=== PATIENT | male | born 1960 | race Caucasian/White ===

== ENCOUNTER 2016-07-03 10:13 | Outpatient (CLI) ==
[2015-12-27 09:16] VITALS: BMI 35.3
[2016-07-03 18:23] LABS: ALBUMIN 3.7 g/dL (3.4-5.0); ALBUMIN/GLOBULIN RATIO 1.09; ANION GAP 17.8; BILIRUBIN,TOTAL 0.77 mg/dL (0.00-1.20); BUN/CREATININE RATIO 14.28; CHOL/HDL RATIO 4.4 (4.5-6.4); CREATININE 1.19 mg/dL (0.60-1.10); POTASSIUM 3.8 mmol/L (3.5-5.1); TOTAL PROTEIN 7.1 g/dL (6.4-8.2)
== END 2016-07-03 10:14 | disposition home or self-care (01) ==
LOC: LAB 10:13
PROVIDERS: ATTEND Nurse Practitioner Family
DX: I10 Essential (primary) hypertension (principal); E11.9 Type 2 diabetes mellitus without complications; E78.5 Hyperlipidemia, unspecified
CPT/HCPCS: 36415; 80053; 80061; 83036

== ENCOUNTER 2016-10-01 11:37 | Outpatient (CLI) ==
[2015-12-27 09:16] VITALS: BMI 35.3
[2016-10-01 13:20] LABS: BASOPHILS % (AUTO) 0.4 % (0.0-3.0); EOSINOPHILS # (AUTO) 0.1 K/ul (0.0-0.7); EOSINOPHILS % (AUTO) 1.1 % (0.0-7.0); HEMATOCRIT 40.1 % (42.0-52.0); HEMOGLOBIN 13.4 g/dl (14.0-18.0); IMMATURE GRANULOCYTE % (AUTO) 0.3 % (0.0-5.0); LYMPHOCYTES # (AUTO) 3.2 K/uL (0.60-3.4); LYMPHOCYTES % (AUTO) 32.5 (10.0-50.0); MEAN CORPUSCULAR HEMOGLOBIN 28.9 pg (27.0-31.0); MEAN CORPUSCULAR HGB CONC 33.4 (31.8-35.4); MEAN CORPUSCULAR VOLUME 86.4 fl (80.0-94.0); MONOCYTES # (AUTO) 0.8 K/uL (0.4-2.0); MONOCYTES % (AUTO) 8.1 (0-10); NEUTROPHILS # (AUTO) 5.7 K/ul (2.0-6.9); NEUTROPHILS % (AUTO) 57.6; PLATELET COUNT 236 10^3/uL (140-440); RED BLOOD COUNT 4.64 10^6/ul (4.70-6.10); WHITE BLOOD COUNT 9.91 K/ul (4.2-10.2)
[2016-10-01 14:09] LABS: ALBUMIN 3.8 g/dL (3.4-5.0); ALBUMIN/GLOBULIN RATIO 1.06; ANION GAP 14.5; BILIRUBIN,TOTAL 0.72 mg/dL (0.00-1.20); BUN/CREATININE RATIO 11.19; CALCIUM 9.2 mg/dL (8.2-10.2); CHOL/HDL RATIO 4.2 (4.5-6.4); CREATININE 1.34 mg/dL (0.60-1.10); POTASSIUM 3.5 mmol/L (3.5-5.1); TOTAL PROTEIN 7.4 g/dL (6.4-8.2)
== END 2016-10-01 11:38 | disposition home or self-care (01) ==
LOC: LAB 11:37
PROVIDERS: ATTEND Nurse Practitioner Family
DX: E11.9 Type 2 diabetes mellitus without complications (principal); I10 Essential (primary) hypertension; F32.9 Major depressive disorder, single episode, unspecified; E78.5 Hyperlipidemia, unspecified
CPT/HCPCS: 36415; 80053; 80061; 83036; 84443; 85025

== ENCOUNTER 2016-10-07 09:56 | Outpatient (CLI) ==
[2015-12-27 09:16] VITALS: BMI 35.3
--- NOTE | 2016-10-07 10:43 | DI ---
EXAM: PA and lateral views of the chest HISTORY: Chest pain COMPARISON: None FINDINGS: The cardiomediastinal silhouette is normal. There is no pneumothorax or pleural effusion . There is no consolidation, nodule or mass. The osseous structures demonstrate no acute osseous a bnormality. IMPRESSION: No acute cardiopulmonary process
== END 2016-10-07 09:57 | disposition home or self-care (01) ==
LOC: LAB 09:56
PROVIDERS: ATTEND Nurse Practitioner Family
DX: R07.89 Other chest pain (principal); E11.42 Type 2 diabetes mellitus with diabetic polyneuropathy; E78.5 Hyperlipidemia, unspecified; I10 Essential (primary) hypertension
CPT/HCPCS: 93005; 93010

== ENCOUNTER 2016-10-13 12:48 | Outpatient (CLI) ==
[2016-10-13 15:32] VITALS: BMI 34.4
== END 2016-10-13 12:49 | disposition home or self-care (01) ==
LOC: DIETCN 12:48
PROVIDERS: ATTEND Nurse Practitioner Family
DX: E11.9 Type 2 diabetes mellitus without complications (principal); E78.5 Hyperlipidemia, unspecified; I10 Essential (primary) hypertension
CPT/HCPCS: 97802

== ENCOUNTER 2017-04-13 13:26 | Outpatient (CLI) ==
[2017-04-13 13:46] LABS: BASOPHILS % (AUTO) 0.2 % (0.0-3.0); EOSINOPHILS # (AUTO) 0.1 K/ul (0.0-0.7); EOSINOPHILS % (AUTO) 1.4 % (0.0-7.0); HEMATOCRIT 41.5 % (42.0-52.0); HEMOGLOBIN 14.1 g/dl (14.0-18.0); IMMATURE GRANULOCYTE % (AUTO) 0.2 % (0.0-5.0); LYMPHOCYTES # (AUTO) 2.5 K/uL (0.60-3.4); LYMPHOCYTES % (AUTO) 31.5 (10.0-50.0); MEAN CORPUSCULAR VOLUME 85.4 fl (80.0-94.0); MONOCYTES # (AUTO) 0.7 K/uL (0.4-2.0); MONOCYTES % (AUTO) 8.2 (0-10); NEUTROPHILS # (AUTO) 4.7 K/ul (2.0-6.9); NEUTROPHILS % (AUTO) 58.5; PLATELET COUNT 225 10^3/uL (140-440); RED BLOOD COUNT 4.86 10^6/ul (4.70-6.10); WHITE BLOOD COUNT 8.02 K/ul (4.2-10.2)
[2017-04-13 16:29] LABS: ALBUMIN 3.3 g/dL (3.4-5.0); ALBUMIN/GLOBULIN RATIO 0.79; ANION GAP 14.8; BILIRUBIN,TOTAL 0.62 mg/dL (0.00-1.20); BUN/CREATININE RATIO 15.2; CALCIUM 9.6 mg/dL (8.2-10.2); CHOL/HDL RATIO 4.2 (4.5-6.4); CREATININE 1.25 mg/dL (0.60-1.10); POTASSIUM 3.8 mmol/L (3.5-5.1); TOTAL PROTEIN 7.5 g/dL (6.4-8.2)
== END 2017-04-13 13:27 | disposition home or self-care (01) ==
LOC: LAB 13:26
PROVIDERS: ATTEND Nurse Practitioner Family
DX: E78.5 Hyperlipidemia, unspecified (principal); E11.42 Type 2 diabetes mellitus with diabetic polyneuropathy; I10 Essential (primary) hypertension
CPT/HCPCS: 36415; 80053; 80061; 83036; 85025

== ENCOUNTER 2017-07-12 08:53 | Outpatient (CLI) | END 2017-07-12 08:54 | disposition home or self-care (01) | LOC: RHC-LAB 08:53 | PROVIDERS: ATTEND Nurse Practitioner Family | DX: E11.9 Type 2 diabetes mellitus without complications (principal); I10 Essential (primary) hypertension; E78.5 Hyperlipidemia, unspecified; Z12.5 Encounter for screening for malignant neoplasm of prostate | CPT/HCPCS: 36415; 80053; 80061; 83036 ==

== ENCOUNTER 2017-09-22 10:12 | Outpatient (CLI) | END 2017-09-22 10:13 | disposition home or self-care (01) | LOC: FCC-LAB 10:12 | PROVIDERS: ATTEND Family Medicine | DX: E11.9 Type 2 diabetes mellitus without complications (principal); E78.5 Hyperlipidemia, unspecified; I10 Essential (primary) hypertension | CPT/HCPCS: 36415; 80053; 83037 ==

== ENCOUNTER 2017-10-08 12:02 | Outpatient (CLI) | payer OTHER | END 2017-10-08 12:03 | disposition home or self-care (01) | LOC: RHC-LAB 12:02 | PROVIDERS: ATTEND Nurse Practitioner Family | DX: E11.42 Type 2 diabetes mellitus with diabetic polyneuropathy (principal); I25.10 Atherosclerotic heart disease of native coronary artery without angina pectoris; I25.2 Old myocardial infarction; E78.5 Hyperlipidemia, unspecified; I10 Essential (primary) hypertension; N17.9 Acute kidney failure, unspecified | CPT/HCPCS: 36415; 80048 ==

== ENCOUNTER 2017-10-26 10:44 | Outpatient (CLI) | payer OTHER | END 2017-10-26 10:45 | disposition home or self-care (01) | LOC: FCC-LAB 10:44 | PROVIDERS: ATTEND Family Medicine | DX: E11.9 Type 2 diabetes mellitus without complications (principal); N17.9 Acute kidney failure, unspecified; R42 Dizziness and giddiness | CPT/HCPCS: 36415; 80053; 82043; 85025 ==

== ENCOUNTER 2017-11-29 09:51 | Outpatient (CLI) | END 2017-11-29 09:52 | disposition home or self-care (01) | LOC: FCC-LAB 09:51 | PROVIDERS: ATTEND Family Medicine | DX: N17.9 Acute kidney failure, unspecified (principal); N18.3 Chronic kidney disease, stage 3 (moderate) | CPT/HCPCS: 36415; 80053 ==

== ENCOUNTER 2018-06-02 09:30 | Emergency (ER) ==
[2018-06-02 09:36] VITALS: BP 117/78; TEMP 96; BMI 34.1
--- NOTE | 2018-06-02 10:07 | ED.PDOC ---
General ED Provider: Dr. WILLIE FREEDMAN Chief Complaint: Hand Pain/Injury Stated Complaint: Rt Hand Injury. Was unloading large piece of exercise equipment from his truck when his Rt Hand was crushed between the machine and a solid wall. Experiencing severe pain over dorsum Rt Hand 1st -3rd Metarcarpal region. Sustained small puncuture wound mid aspect of injury site. Bleeding profusely initially but controlled now. States has been greater than 5 yrs for tetanus immunization . Time Seen by Physician: 09:55 Mode of Arrival: Walk-In Information Source: Patient Exam Limitations: No limitations Primary Care Provider: VELIA DONNELLY Nursing and Triage Documentation Reviewed and Agree: Yes Does patient meet sepsis criteria?: No System Inflammatory Response Syndrome: Not Applicable Sepsis Protocol: For patient's 13 years and over: Temp is 96.8 and below OR 101 and greater Pulse >90 BPM Resp >20/minute Acutely Altered Mental Status Are patient's symptoms suggestive of a new infection, such as: -Pneumonia -Skin, Soft Tissue -Endocarditis -UTI -Bone, Joint Infection -Implantable Device -Acute Abdominal Infection -Wound Infection -Meningitis -Blood Stream Catheter Infection -Unknown Musculoskeletal Complaint Exam - Hand/Wrist Complaint/Exam Location of Pain: Reports: Right, Digit #2, Digit #3 Mechanism of Injury: Reports: Trauma Onset/Duration: 1 hr Symptoms Are: Still present Onset of Pain: Reports: Immediate Initial Severity: Moderate Current Severity: Moderate Location: Reports: Discrete Character: Reports: Sharp, Aching, Throbbing Aggravating: Reports: Movement Associated Signs and Symptoms: Reports: Swelling, Bruising Related History: Denies: Similar episode Dominant Hand: Right Related Surgical History: Reports: None Hand/Wrist Findings: Present: Swelling, Ecchymosis Tenderness: Present: Metacarpal Compartment Syndrome Risk Factors: Present: Pain Differential Diagnoses: Contusion, Other ( abrasion /puncture wound) Review of Systems - Review Of Systems Constitutional: Reports: No symptoms Eyes: Reports: No symptoms Ears, Nose, Mouth, Throat: Reports: No symptoms Respiratory: Reports: No symptoms Cardiac: Reports: No symptoms GI: Reports: No symptoms : Reports: No symptoms Musculoskeletal: Reports: No symptoms Skin: Reports: No symptoms Neurological: Reports: No symptoms Endocrine: Reports: No symptoms Hematologic/Lymphatic: Reports: No symptoms All Other Systems: Reviewed and Negative Past Medical History - Past Medical History Previously Healthy: Yes Endocrine: Reports: None, Dyslipidemia Cardiovascular: Reports: CAD, [place], Hypertension Respiratory: Reports: None Hematological: Reports: None Gastrointestinal: Reports: None Genitourinary: Reports: None Neuro/Psych: Reports: None Musculoskeletal: Reports: None Cancer: Reports: None - Surgical History General Surgical History: Reports: None - Family History Family History: Reports: Unknown - Social History Smoking Status: Never smoker Hx Substance Use: No Alcohol Screening: Occasionally - Immunizations Tetanus Shot up to Date: No Physical Exam - Physical Exam Appearance: Well-appearing, No pain distress, Well-nourished Eyes: NIKKI, EOMI, Conjunctiva clear ENT: Ears normal, Nose normal, Oropharynx normal Respiratory: Airway patent, Breath sounds clear, Breath sounds equal, Respirations nonlabored Cardiovascular: RRR, Pulses normal, No rub, No murmur GI/: Soft, Nontender, No masses, Bowel sounds normal, No Organomegaly Musculoskeletal: Normal strength, No calf tenderness, Limited ROM, Limited strength, Edema Skin: Warm, Dry, Normal color Neurological: Sensation intact, Motor intact, Reflexes intact, Cranial nerves intact, Alert, Oriented Psychiatric: Affect appropriate, Mood appropriate Critical Care Note - Critical Care Note Total Time (mins): 0 Course - Course Orders, Labs, Meds: Orders Category Date Time Status Diphth,Pertuss(Acell),Tet Vac [Boostrix] MEDS 06/02/18 10:51 Discontinued 0.5 ml IM .ONCE ONE HAND, RIGHT 3 VIEWS Stat RADS 06/02/18 10:07 Completed Medications Discontinued Medications Generic Name Dose Route Start Last Admin Trade Name Freq PRN Reason Stop Dose Admin Diphtheria/Pertussis/Tetanus Vacc 0.5 ml 06/02/18 10:51 Boostrix IM 06/02/18 10:52 .ONCE ONE Vital Signs: Temp Pulse Resp BP Pulse Ox 06/02/18 09:31 96 F L 70 16 117/78 98 Departure - Departure Time of Disposition: 10:44 Disposition: DISCH/TSF TO A [facility] Discharge Problem: Contusion of hand, right, Crushing injury, Puncture wound Instructions: Puncture Wound (ED), Contusion in Adults (ED), Crush Injury (ED) Condition: Good Pt referred to PMD for follow-up: Yes (Dr Donnelly on Wednesday-pre existing appointment) IPMP verified?: No Additional Instructions: Take Ibuprofen 200 mg 3 tablets four times daily for alleviation of pain. Had splint Ice and elevate Follow wound care instructions Follow up PCP as directed Allergies/Adverse Reactions: Allergies clindamycin Adverse Reaction (Verified 06/02/18 09:38) Home Medications: Ambulatory Orders Aspirin [Aspirin Ec] 81 mg PO DAILY 11/20/14 Hydrochlorothiazide 12.5 mg PO DAILY 11/20/14 Lisinopril 20 mg PO BID 11/20/14 Metoprolol Tartrate 50 mg PO BID 11/20/14 Nitroglycerin [Nitrostat] 0.4 mg SL PRN PRN 11/20/14 Transfer Form Completed: Yes Disposition Discussed With: Patient
--- NOTE | 2018-06-02 10:39 | DI ---
EXAM: Three views of the right hand. History: Right hand trauma. Findings: No acute fracture or dislocation. Moderate narrowing of the first carpal metacarpal joint with marginal sclerosis and osteophyte formation. Mild to moderate polyarticular joint space narrow ing seen elsewhere. No abnormal calcifications or radiopaque foreign bodies. Impression: 1. No acute osseous abnormality. 2. Osteoarthritis
[2018-06-02] MEDS ORDERED: BOOSTRIX IM ONE (10:51)
== END 2018-06-02 11:00 ==
LOC: ED 09:30
DX: S61.431A Puncture wound without foreign body of right hand, initial encounter (principal); S60.221A Contusion of right hand, initial encounter; W23.0XXA Caught, crushed, jammed, or pinched between moving objects, initial encounter
CPT/HCPCS: 90471; 90715; 99283

== ENCOUNTER 2018-06-07 09:25 | Outpatient (CLI) ==
--- NOTE | 2018-06-07 10:13 | DI ---
EXAM: RIGHT HAND, 3 VIEWS HISTORY: Crushing injury, focus second metacarpal phalangeal joint FINDINGS / IMPRESSION: Bones are mildly demineralized. There is diffuse osteoarthritis, greater at the DIP joints were some joints demonstrate moderate involvement. There is no definite or well-defi gela acute fracture line. Joints are intact.
== END 2018-06-07 09:26 | disposition home or self-care (01) ==
LOC: RAD 09:25
PROVIDERS: ATTEND Family Medicine
DX: E78.5 Hyperlipidemia, unspecified (principal); E11.9 Type 2 diabetes mellitus without complications; S67.21XA Crushing injury of right hand, initial encounter; I10 Essential (primary) hypertension
CPT/HCPCS: 36415; 80053; 80061; 83036; 85025

== ENCOUNTER 2018-07-05 10:39 | Outpatient (CLI) | END 2018-07-05 10:40 | disposition home or self-care (01) | LOC: RHC-LAB 10:39 → FCC-LAB 10:40 | PROVIDERS: ATTEND Family Medicine | DX: R53.82 Chronic fatigue, unspecified (principal) | CPT/HCPCS: 36415; 84403 ==

== ENCOUNTER 2018-07-13 08:26 | Outpatient (CLI) | END 2018-07-13 08:27 | disposition home or self-care (01) | LOC: RHC-LAB 08:26 → FCC-LAB 08:27 | PROVIDERS: ATTEND Family Medicine | DX: E29.1 Testicular hypofunction (principal) | CPT/HCPCS: 36415; 84403 ==

== ENCOUNTER 2018-09-20 07:59 | Outpatient (CLI) | payer OTHER | END 2018-09-20 08:00 | disposition home or self-care (01) | LOC: RHC-LAB 07:59 → FCC-LAB 08:00 | PROVIDERS: ATTEND Family Medicine | DX: E11.65 Type 2 diabetes mellitus with hyperglycemia (principal); E78.5 Hyperlipidemia, unspecified; I10 Essential (primary) hypertension; E78.1 Pure hyperglyceridemia; Z12.5 Encounter for screening for malignant neoplasm of prostate | CPT/HCPCS: 36415; 80053; 80061; 83036; 85025 ==

== ENCOUNTER 2018-11-02 17:02 | Emergency (ER) | payer OTHER ==
[2018-11-02 17:06] VITALS: BP 176/93; TEMP 100.3; BMI 33.7
--- NOTE | 2018-11-02 17:19 | ED.PDOC ---
General Chief Complaint: Tooth Problem Stated Complaint: dental pain Time Seen by Physician: 17:00 Mode of Arrival: Walk-In Information Source: Patient Exam Limitations: No limitations Primary Care Provider: VELIA DONNELLY Nursing and Triage Documentation Reviewed and Agree: Yes Does patient meet sepsis criteria?: No System Inflammatory Response Syndrome: Not Applicable Sepsis Protocol: For patient's 13 years and over: Temp is 96.8 and below OR 101 and greater Pulse >90 BPM Resp >20/minute Acutely Altered Mental Status Are patient's symptoms suggestive of a new infection, such as: -Pneumonia -Skin, Soft Tissue -Endocarditis -UTI -Bone, Joint Infection -Implantable Device -Acute Abdominal Infection -Wound Infection -Meningitis -Blood Stream Catheter Infection -Unknown EENT Complaint Exam - Dental/Oral Complaint/Exam Mechanism of Injury: No known trauma Symptoms Are: Still present Timing: Intermittent Initial Severity: Mild Current Severity: Mild Character: Reports: Dull, Aching, Throbbing Aggravating: Reports: Heat, Cold Alleviating: Reports: None Associated Signs and Symptoms: Denies: Swelling, Discharge, Fever, Foul odor, Foul taste in mouth Cardiac Risk Factors: Reports: Hypertension Dental/Oral Surgical History: Reports: None Tooth Findings: Present: Gross caries Cervical Lymphadenopathy Present: No Facial Swelling Present: No Bleeding Present: No Oropharynx Findings: Absent: Clots, Active bleeding Septal Hematoma: No Foreign Body Present: No Dysphagia Present: No Drooling Present: No Asymmetrical Tonsillar Swelling Present: No Uvula Midline: Yes Geno-tonsillar Fluctuence: No Scarlatinaform Rash Present: No Lesions: Absent: Lip, Gums, Tongue, Buccal Mucosa, Pharynx Exanthem: Absent: Lip, Gums, Tongue, Buccal Mucosa, Pharynx Vesicles: Absent: Lip, Gums, Tongue, Buccal Mucosa, Pharynx Teeth Picture: 1 - decay Differential Diagnoses: Dental Caries, Fractured Tooth Review of Systems - Review Of Systems Constitutional: Reports: No symptoms Eyes: Reports: No symptoms Ears, Nose, Mouth, Throat: Reports: No symptoms Respiratory: Reports: No symptoms Cardiac: Reports: No symptoms GI: Reports: No symptoms : Reports: No symptoms Musculoskeletal: Reports: No symptoms Skin: Reports: No symptoms Neurological: Reports: No symptoms Endocrine: Reports: No symptoms Hematologic/Lymphatic: Reports: No symptoms All Other Systems: Reviewed and Negative Past Medical History - Past Medical History Previously Healthy: Yes Endocrine: Reports: None, Dyslipidemia Cardiovascular: Reports: CAD, [place], Hypertension Respiratory: Reports: None Hematological: Reports: None Gastrointestinal: Reports: None Genitourinary: Reports: None Neuro/Psych: Reports: None Musculoskeletal: Reports: None Cancer: Reports: None - Surgical History General Surgical History: Reports: None - Family History Family History: Reports: Unknown - Social History Smoking Status: Never smoker Hx Substance Use: No Alcohol Screening: Occasionally Physical Exam - Physical Exam Appearance: Well-appearing, No pain distress, Well-nourished Eyes: NIKKI, EOMI, Conjunctiva clear ENT: Ears normal, Nose normal, Oropharynx normal Respiratory: Airway patent, Breath sounds clear, Breath sounds equal, Respirations nonlabored Cardiovascular: RRR, Pulses normal, No rub, No murmur GI/: Soft, Nontender, No masses, Bowel sounds normal, No Organomegaly Musculoskeletal: Normal strength, ROM intact, No edema, No calf tenderness Skin: Warm, Dry, Normal color Neurological: Sensation intact, Motor intact, Reflexes intact, Cranial nerves intact, Alert, Oriented Psychiatric: Affect appropriate, Mood appropriate Critical Care Note - Critical Care Note Total Time (mins): 0 Course - Course Vital Signs: Temp Pulse Resp BP Pulse Ox 11/02/18 17:03 100.3 F H 64 20 176/93 H 96 Departure - Departure Time of Disposition: 17:19 Disposition: HOME SELF-CARE Discharge Problem: Toothache Instructions: Toothache (ED) Condition: Good Pt referred to PMD for follow-up: Yes IPMP verified?: No Additional Instructions: Please call your Family Physician as soon as possible to schedule a follow-up appointment. Prescriptions: Hydrocodone Bit/Acetaminophen [[place] 10-325] 1 each PO Q6HR #10 tablet Amoxicillin 500 mg PO Q8HR #21 tablet Allergies/Adverse Reactions: Allergies clindamycin Adverse Reaction (Verified 11/02/18 17:05) Home Medications: Ambulatory Orders Aspirin [Aspirin Ec] 81 mg PO DAILY 11/20/14 Hydrochlorothiazide 12.5 mg PO DAILY 11/20/14 Lisinopril 20 mg PO BID 11/20/14 Nitroglycerin [Nitrostat] 0.4 mg SL PRN PRN 11/20/14 Amoxicillin 500 mg PO Q8HR #21 tablet 11/02/18 Hydrocodone Bit/Acetaminophen [[place] 10-325] 1 each PO Q6HR #10 tablet 11/02/18 Disposition Discussed With: Patient
== END 2018-11-02 17:27 | disposition home or self-care (01) ==
LOC: ED 17:02
DX: K08.89 Other specified disorders of teeth and supporting structures (principal); K02.7 Dental root caries; I10 Essential (primary) hypertension
CPT/HCPCS: 99282

== ENCOUNTER 2018-12-23 08:03 | Outpatient (CLI) | payer OTHER | END 2018-12-23 08:04 | disposition home or self-care (01) | LOC: RHC-LAB 08:03 → FCC-LAB 08:04 | PROVIDERS: ATTEND Family Medicine | DX: E11.65 Type 2 diabetes mellitus with hyperglycemia (principal); E78.5 Hyperlipidemia, unspecified | CPT/HCPCS: 36415; 80053; 80061; 83037; 85025 ==

== ENCOUNTER 2019-01-02 08:46 | Outpatient (CLI) | END 2019-01-02 08:47 | disposition home or self-care (01) | LOC: LAB 08:46 | PROVIDERS: ATTEND Family Medicine | DX: R10.13 Epigastric pain (principal) | CPT/HCPCS: 87338 ==

== ENCOUNTER 2019-01-04 07:26 | Outpatient (CLI) ==
--- NOTE | 2019-01-04 08:59 | DI ---
EXAM: Esophogram HISTORY: Epigastric pain COMPARISON: None FINDINGS: Esophogram was performed using barium. Esophageal motility is normal. Esophageal caliber i s normal. No filling defect is seen in the esophagus. Small hiatal hernia. There was contrast seen i n the mid to distal esophagus during patient maneuvering, that may be due to reflux and/or dysmotilit y. IMPRESSION: 1. Small hiatal hernia. 2. Contrast in the mid to distal esophagus during patient maneuvering, may be due to reflux and/or dy smotility.
== END 2019-01-04 07:27 | disposition home or self-care (01) ==
LOC: RAD 07:26
PROVIDERS: ATTEND Family Medicine
DX: R10.13 Epigastric pain (principal)

== ENCOUNTER 2023-07-22 10:42 | Observation (INO) ==
--- NOTE | 2023-07-22 10:58 | ED.PDOC ---
General ED Provider: Dr. YASMIN BULLOCK DO Chief Complaint: Stroke Stated Complaint: Patient is a 63 yo M here for weakness and L sided weakness for 3 days He is worried because this is similar to the stuttering strokes he had last year He reports he was driving on wednesday went home and went to bed and has been weak since No falls or injuries Family at bedside reprots his voice is different He is can ambulkate well after previous stroke but feels LUE and LLE is weaker than it should be accucheck 220 BP 114/72 Last normal 60 hours ago NIH 2 for LUE weakness and subjective change in voice PMHX: IDDM, CVA, CAD, HTN, HLD Time Seen by Provider: 07/22/23 10:45 Information Source: Patient Primary Care Provider: VELIA DONNELLY MD Nursing and Triage Documentation Reviewed and Agree: Yes What is Opioid Naive?: *Opioid Naive implies the patient is not already taking opioids or not chronically receiving opioids on a daily basis. *PRN dosing is not "usually" associated with tolerance. *Patients are at higher risk of over-sedation and aspiration. What is Opioid Tolerant?: *Opioid Tolerance implies less than the expected response to an opioid. *Acquired tolerance is defined by the patient taking 60mg of oral morphine daily (or equianalgesic dose of another opioid) for 1 week or more. *Often associated with chronic pain. *May take more than usual dose to achieve desired pain control. Review of Systems Review Of Systems Constitutional: Reports Weakness; Denies Chills, Fever or Malaise Eyes: Denies Blindness or Vision change Ears, Nose, Mouth, Throat: Denies Ear pain, Ear discharge or Nose pain Respiratory: Denies Cough, Shortness of Breath or Wheezing Cardiac: Denies Chest pain, Palpitations or Syncope GI: Denies Abdominal pain or Diarrhea : Denies Dysuria or Frequency Musculoskeletal: Denies Back pain or Muscle stiffness Skin: Denies Bruising or Change in hair/nails Neurological: Reports Weakness (Lue and LLE); Denies Anxiety, Depressed, Headache or Numbness Endocrine: Denies Excessive sweating or Flushing Hematologic/Lymphatic: Denies Anemia or Blood clots All Other Systems: Reviewed and Negative [facility] Medical History Pacemaker Z95.0 - Presence of cardiac pacemaker (ICD-10) Mixed hyperlipidemia E78.2 - Mixed hyperlipidemia (ICD-10) Implantable loop recorder present Z95.818 - Presence of other cardiac implants and grafts (ICD-10) Recurrent strokes I63.9 - Cerebral infarction, unspecified (ICD-10) Low vitamin B12 level E53.8 - Deficiency of other specified B group vitamins (ICD-10) Ruptured lumbar disc M51.26 - Other intervertebral disc displacement, lumbar region (ICD-10) Myocardial infarction I21.9 - Acute myocardial infarction, unspecified (ICD-10) Elevated fasting blood sugar R73.01 - Impaired fasting glucose (ICD-10) Depression F32.9 - Major depressive disorder, single episode, unspecified (ICD-10) Atherosclerosis of coronary artery I25.10 - Atherosclerotic heart disease of [place] coronary artery without angina pectoris (ICD-10) Dyspnea on effort R06.00 - Dyspnea, unspecified (ICD-10) Stented coronary artery Z95.5 - Presence of coronary angioplasty implant and graft (ICD-10) Stye H00.019 - Hordeolum externum unspecified eye, unspecified eyelid (ICD-10) Family History Mother Diabetes History of knee replacement Cardiac disease Hypertension FATHER Diabetes Cardiac disease Lung cancer Hypertension SISTER Breast cancer, left Breast cancer, right BROTHER Cardiac disease Hypertension BROTHER Arthritis BROTHER Arthritis Social History Smoking and tobacco status: Former smoker Passive smoking exposure: No How long ago did patient quit smoking: approx age 27 Second hand smoke exposure: No Alcohol intake: current Alcohol intake frequency: holidays/special occasions only Alcohol type: beer Counseling given: No Counseling provided: none Substance use type: does not use [place]/rastafarian: NONE Special [place] needs: No Agree to transfusion: Yes Adopted: No Caregiver/support person: No Foster care: No Household members: none Housing: house Marital status: D Lives independently: Yes Daycare: no daycare Number of children: 5 Number of grandchildren: 19 Highest education level completed: some college, no degree Financial difficulty paying for basics: not very hard service: Yes 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 MCFP: No Current occupational status: disabled 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: , 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 Pets and animals: No Leisure activites: fishing and other History of recent travel: No Sexually active: No Do you think of yourself as: straight/heterosexual Current gender identity: male Seatbelt use: always Helmet use: No Drives intoxicated or rides with intoxicated river driver: No Current diet type/program: regular Well-balanced diet: daily Caffeine: Yes Eating out: 4 or more times/week Reads food labels: seldom or never During the past year weight has: increased > 10 lbs Water heater temperature set < 120 degrees: Yes Working smoke detector in home: Yes Fire extinguisher in home: Yes Carbon monoxide detector in home: No Firearms in home: Yes Firearms unloaded and locked: Yes What type of physical activity do you participate in?: bicycling Physical activity functional status: independent ambulation How many days of moderate to strenuous exercise, like a brisk walk, did you do in the last 7 days: 0 Surgical History History of loop recorder Z98.890 - Other specified postprocedural states (ICD-10) (09/13/18) Negative stress echo on 09/13/18 History of musculoskeletal system surgery (07/10/13) Back Surgery, Dr. Desir Work-Related injury Z98.890 - Other specified postprocedural states (ICD-10) Placement of stent in coronary artery (~2013) Dr. Dean Status post appendectomy age 12 Z90.49 - Acquired absence of other specified parts of digestive tract (ICD- 10) Physical Exam Physical Exam Appearance: Reports Well-appearing and Well-nourished Ill-appearing: Not Applicable Pain Distress: Not Applicable Eyes: Reports NIKKI, EOMI and Conjunctiva clear ENT: Reports Ears normal, Nose normal and Oropharynx normal Neck: Supple Respiratory: Reports Airway patent and Breath sounds clear; Denies Crackles, Rhonchi or Wheezes Cardiovascular: Reports RRR and Pulses normal GI/: Reports Soft and Nontender Musculoskeletal: Reports Normal strength and ROM intact Skin: Reports Warm and Dry Neurological: Reports Sensation intact, Alert, Oriented and Other (LUE weakenss and LLE weakness); Denies Disoriented or CN Palsy Psychiatric: Reports Affect appropriate and Mood appropriate NIH Stroke Scale 1a. Level of Consciousness: 0=Alert and keenly responsive 1b. Level of Consciousness Questions: 0=Answers correctly to two questions 2. Best Gaze: 0=Normal 3. Visual: 0=No visual loss 4. Facial Palsy: 0=Normal 5a. Motor Left Arm: 1=Drifts before 10 seconds arm, 5 seconds leg 5b. Motor Right Arm: 0=No drift,arm holds 90 degrees for 10 sec., leg 30 degrees for 5 sec. 6a. Motor Left Le=No drift,arm holds 90 degrees for 10 sec., leg 30 degrees for 5 sec. 6b. Motor Right Le=No drift,arm holds 90 degrees for 10 sec., leg 30 degrees for 5 sec. 7. Limb Ataxia: 0=Absent 8. Sensory: 0=Normal 9. Best Language: 0=No aphasia 10. Dysarthria: 1=Mild to moderate, but can be understood 11. Extincion and Inattention: 0=Normal Stroke Scale Total: 2 Interpretation EKG Interpretation EKG Interpretation By: ED Physician Time of EKG #1: 10:55 Interpretation: NSR rate 72 no stemi qt wnl Course Course 07/22/23 10:58 07/22/23 10:58 Orders, Labs, Meds: Lab Review 07/22/23 07/22/23 07/22/23 10:53 10:58 12:49 WBC 7.12 RBC 5.04 Hgb 13.9 L Hct 42.9 MCV 85.1 MCH 27.6 MCHC 32.4 RDW Coeff of Isaura 13.7 Plt Count 209 Immature Gran % (Auto) 0.3 Neut % (Auto) 67.1 Lymph % (Auto) 19.5 [place] % (Auto) 11.7 H Eos % (Auto) 1.1 Baso % (Auto) 0.3 Neut # (Auto) 4.8 Lymph # (Auto) 1.4 [place] # (Auto) 0.8 Eos # (Auto) 0.1 Baso # (Auto) 0.0 Immature Gran # (Auto) 0.0 PT 10.6 INR 1.02 APTT 32.8 Sodium 135.2 Potassium 3.45 L Chloride 103.6 Carbon Dioxide 25.3 Anion Gap 9.75 BUN 14.9 Creatinine 1.37 H Estimated GFR (MDRD) 53.00 BUN/Creatinine Ratio 10.87 Glucose 243.9 H Calcium 9.15 Total Bilirubin 0.92 AST 22.5 ALT 28.3 Alkaline Phosphatase 65.9 Troponin I < 0.012 Total Protein 7.75 Albumin 4.24 Globulin 3.51 Albumin/Globulin Ratio 1.20 Urine Color Yellow Urine Clarity Clear Urine pH 5.5 Ur Specific [place] 1.010 Urine Protein Negative Urine Glucose (UA) 2+ H Urine Ketones Negative Urine Blood Negative Urine Nitrite Negative Urine Bilirubin Negative Urine Urobilinogen 0.2 Ur Leukocyte Esterase Negative Acetone, Qual Trace Influ A Molecular Assay Negative by naat Influ B Molecular Assay Negative by naat RSV Antigen Negative by naat SARS CoV-2 RNA Rapid FRANCINE Positive H Orders Category Date Time Status EKG-(ED ONLY) Stat CARDIO 07/22/23 10:49 Completed NPO REMINDER: IMAGING ONCE CARE 07/22/23 10:49 Completed ED ACCUCHECK ASSESSMENT .ONCE EMERGENCY 07/22/23 10:49 Active ED APPLY O2 .ONCE EMERGENCY 07/22/23 10:49 Active ED IV/MEDIPORT/POWERPORT .ONCE EMERGENCY 07/22/23 10:49 Active ACETONE, QUALITATIVE Stat LAB 07/22/23 10:58 Completed CBC W/ AUTO DIFF Stat LAB 07/22/23 10:58 Completed COMPREHENSIVE METABOLIC PANEL Stat LAB 07/22/23 10:58 Completed FLU A & B MOLECULAR [FLU A/B MOLECULAR] Stat LAB 07/22/23 10:53 Completed PARTIAL THROMBOPLASTIN TIME Stat LAB 07/22/23 10:58 Completed PT WITH INR Stat LAB 07/22/23 10:58 Completed RSV Stat LAB 07/22/23 10:53 Completed SARS COV-2 RNA RAPID FRANCINE Stat LAB 07/22/23 10:53 Completed TROPONIN I Stat LAB 07/22/23 10:58 Completed UA [URINALYSIS C & S IF INDICATED] Stat LAB 07/22/23 12:49 Completed 0.9 % Sodium Chloride [Saline Flush] Meds 07/22/23 10:49 Active 1 syr IVF PRN PRN Aspirin [Aspirin Chewable] Meds 07/22/23 11:41 Discontinued 324 mg PO ONCE STA Sodium Chloride 0.9% [Sodium Chloride] 1,000 ml Meds 07/22/23 10:58 Active IV 125 mls/hr CT HEAD W/O CONTRAST Stat RADS 07/22/23 10:49 Completed CTA ANGIO HEAD Stat RADS 07/22/23 10:49 Completed CTA ANGIO NECK Stat RADS 07/22/23 10:49 Completed Medications Generic Name Dose Route Start Last Admin Trade Name Freq PRN Reason Stop Dose Admin Sodium Chloride 1,000 mls @ 125 mls/hr 07/22/23 10:58 07/22/23 11:06 Sodium Chloride IV 07/22/23 18:57 125 mls/hr .Q8H ONE Administration Sodium Chloride 1 syr 07/22/23 10:49 0.9% Sodium Chloride 10 Ml Disp.Syrin IVF PRN PRN To flush IV Discontinued Medications Generic Name Dose Route Start Last Admin Trade Name Freq PRN Reason Stop Dose Admin Aspirin 324 mg 07/22/23 11:41 07/22/23 11:47 Aspirin 81 Mg Tab.Chew PO 07/22/23 11:42 324 mg ONCE STA Administration Vital Signs: Temp Pulse Resp BP Pulse Ox 07/22/23 10:46 98.5 F 77 18 114/72 97 MDM: patient is a 63 yo M here for LUE LLE weakness since Last Wednesday Patient afebrile and vitally stable Hx from patient chart review by me 3+ labs and 3+ images reviewed by me aspirin given Patient covid positive WDX: Strokelike symptoms, covid 19 acute high complexity DDX: I considered ICH, sepsis, fracture but these are less likely SDOH: patient will improve with further care I consulted Hospitalist and they agree with obs and further work up Patient placed on observation family agree with plan Physician Progress Note: [] Discharge Plan Discharge Patient Disposition: PLACED OBSERVATION Discharge Problem: SARS-CoV-2 positive, Stroke-like episode, Acute hyperglycemia, Elevated serum creatinine Did you review [place] VAN DRIVER for ALL controlled substances?: Not Applicable ED Provider: YASMIN BULLOCK Condition: Stable [place] Coma Scale [place] Coma Scale Response Scores: Best Response = 15 Comatose Client = 8 or Less Totally Unresponsive = 3
[2023-07-22 11:04] LABS: BASOPHILS % (AUTO) 0.3 % (0.0-3.0); EOSINOPHILS # (AUTO) 0.1 K/ul (0.0-0.7); EOSINOPHILS % (AUTO) 1.1 % (0.0-7.0); HEMATOCRIT 42.9 % (42.0-52.0); HEMOGLOBIN 13.9 g/dl (14.0-18.0); IMMATURE GRANULOCYTE % (AUTO) 0.3 % (0.0-5.0); LYMPHOCYTES # (AUTO) 1.4 K/uL (0.60-3.4); LYMPHOCYTES % (AUTO) 19.5 (10.0-50.0); MEAN CORPUSCULAR HEMOGLOBIN 27.6 pg (27.0-31.0); MEAN CORPUSCULAR HGB CONC 32.4 (31.8-35.4); MEAN CORPUSCULAR VOLUME 85.1 fl (80.0-94.0); MONOCYTES # (AUTO) 0.8 K/uL (0.4-2.0); MONOCYTES % (AUTO) 11.7 (0-10); NEUTROPHILS # (AUTO) 4.8 K/ul (2.0-6.9); NEUTROPHILS % (AUTO) 67.1 % (42.2-75.2); PLATELET COUNT 209 10^3/uL (140-440); RDW COEFFICIENT OF VARIATION 13.7 % (11.6-14.8); RED BLOOD COUNT 5.04 10^6/ul (4.70-6.10); WHITE BLOOD COUNT 7.12 K/ul (4.2-10.2)
[2023-07-22] MEDS: SODIUM CHLORIDE 1,000 ML IV ONE (11:06)
[2023-07-22 11:17] LABS: SARS COV-2 RNA RAPID NAAT POSITIVE (NEGATIVE)
[2023-07-22 11:19] LABS: PARTIAL THROMBOPLASTIN TIME 32.8 SEC (23.9-40.0); PROTHROMBIN TIME 10.6 SEC (9.3-11.0)
[2023-07-22 11:22] LABS: ALANINE AMINOTRANSFERASE 28.3 U/L (0-50); ALBUMIN 4.24 g/dL (3.5-5.0); ALKALINE PHOSPHATASE 65.9 U/L (56-119); ASPARTATE AMINO TRANSFERASE 22.5 U/L (17-59); BILIRUBIN,TOTAL 0.92 mg/dL (0.2-1.3); BLOOD UREA NITROGEN 14.9 mg/dL (9-20); CALCIUM 9.15 mg/dL (8.4-10.2); CARBON DIOXIDE 25.3 mmol/L (22-30.0); CHLORIDE 103.6 mmol/L (98-107); CREATININE 1.37 mg/dL (0.60-1.10); GLUCOSE 243.9 mg/dL (74-106); POTASSIUM 3.45 mmol/L (3.5-5.1); SODIUM 135.2 mmol/L (134.5-145); TOTAL PROTEIN 7.75 g/dL (6.3-8.2)
[2023-07-22 11:27] LABS: MOLECULAR FLU A NEGATIVE BY NAAT (NEGATIVE); MOLECULAR FLU B NEGATIVE BY NAAT (NEGATIVE); RSV MOLECULAR NEGATIVE BY NAAT (NEGATIVE)
--- NOTE | 2023-07-22 11:28 | CT ---
EXAM: CT HEAD WITHOUT CONTRAST HISTORY: History of stroke, left-sided deficits COMPARISON: O 12/06/2022 TECHNIQUE: Serial axial images of the brain were obtained from the skull base to the vertex without IV contrast. FINDINGS: No acute intracranial hemorrhage. No hydrocephalus. No midline shift. Parenchymal volume loss. Chronic microangiopathy. Areas of encephalomalacia in the right cerebellar hemisphere and occipital lobe, stable. The calvarium is intact. IMPRESSION: No acute intracranial abnormality. Stable chronic findings. All CT scans are performed using dose optimization techniques as appropriate to the performed exam an d include at least one of the following: Automated exposure control, adjustment of the mA and/or kV according t o size, and the use of iterative reconstruction technique.
[2023-07-22 11:34] LABS: TROPONIN I < 0.012 ng/ml (0.0000-0.120)
[2023-07-22] MEDS: ASPIRIN CHEWABLE PO STA (11:47)
[2023-07-22 13:00] LABS: BILIRUBIN,URINE Negative (NEGATIVE); CLARITY,URINE Clear (CLEAR); COLOR,URINE Yellow (YELLOW); GLUCOSE, URINE (UA) 2+ (NEGATIVE); KETONES,URINE Negative (NEGATIVE); LEUKOCYTE ESTERASE ,URINE Negative (NEGATIVE); NITRITE,URINE Negative (NEGATIVE); PH,URINE 5.5 (5-9); PROTEIN,URINE Negative (NEGATIVE); URINE, BLOOD Negative (NEGATIVE); UROBILINOGEN,URINE 0.2 (0.2)
--- NOTE | 2023-07-22 13:17 | CT ---
EXAM: CTA HEAD HISTORY: Left sided neural deficit. COMPARISON: Same day brain CT. TECHNIQUE: Unenhanced CT of the head was performed from the skull base to the vertex. CT angiography of the head was performed with 3D/MIP coronal and sagittal reconstructions for evaluation of the [place]. FINDINGS: CT head: Again seen is encephalomalacia in the right occipital lobe and right cerebellum. No intracranial hemorrhage or extra-axial collection. No mass, mass effect or midline shift. The wilcox -white matter differentiation is preserved. The ventricles are normal in size. The basal cisterns are patent. Mucosal thickening is noted in the bilateral ethmoid and maxillary sinuses. The mastoid air cells are clear. The orbits are unremarkable. The visualized osseous structures are unremarkabl e. CTA head: The distal cervical, petrous, cavernous, and supraclinoid segments of the internal carotid arteries a re normal in contour and caliber. The anterior and middle cerebral arteries are normal in contour and caliber without large vessel occl usion. The vertebrobasilar system is patent. The superior cerebellar and posterior cerebral arteries are no rmal in contour and caliber. There is no intracranial aneurysm or arteriovenous malformation. IMPRESSION: 1. No acute intracranial findings. 2. Encephalomalacia in the right occipital lobe and right cerebellum. 3. No large vessel occlusion or high grade stenosis within the [place]. All CT scans are performed using dose optimization techniques as appropriate to the performed exam an d include at least one of the following: Automated exposure control, adjustment of the mA and/or kV according t o size, and the use of iterative reconstruction technique.
--- NOTE | 2023-07-22 13:18 | CT ---
EXAM: CTA NECK HISTORY: Left-sided deficit. TECHNIQUE: CT angiography of the neck was performed with coronal and sagittal 3-D MIPS reconstructio ns. Internal carotid artery stenosis are assessed utilizing NASCET criteria. COMPARISON: None. FINDINGS: The visualized portions of the aortic arch are within normal limits. The origin of the right common carotid artery is patent. There is atherosclerotic calcification at the right carotid bulb without significant stenosis. The origin of the left common carotid artery is patent. The left common carotid artery has a normal course and caliber within the neck. The left carotid bifurcation and carotid bulb are normal. The c ervical segment of the left internal carotid artery is normal in contour and caliber without signific ant stenosis. The right vertebral artery is normal in contour and caliber without significant stenosis. The left vertebral artery is normal in contour and caliber without significant stenosis. No aneurysm or vascular malformation is identified. There is multilevel disc desiccation and degenerative change involving posterior disc osteophyte comp lexes, facet joint hypertrophy, and uncovertebral joint hypertrophy resulting in various degrees of c entral canal and neural foraminal stenosis. IMPRESSION: No carotid or vertebral artery stenosis. All CT scans are performed using dose optimization techniques as appropriate to the performed exam an d include at least one of the following: Automated exposure control, adjustment of the mA and/or kV according t o size, and the use of iterative reconstruction technique.
--- NOTE | 2023-07-22 13:45 | PCM ---
Date of Service Date Seen by Provider: 07/22/23 Time Seen by Provider: 14:00 Admit Day/Time Admission Date: 07/22/23 Admission Time: 13:33 Reason for Admission Chief Complaint: STROKE LIKE SYMPTOMS Hospital Provider Hospital Provider: Cyndy Maier PA-C, [facility] Primary Care Physician Primary Care Physician: VELIA DONNELLY MD History of Present Illness History of Present Illness: Patient is a 63 year old male from home with pmhx of multiple CVAs, [place] x2, diabetes, hyperlipidemia, b12 deficiency, hypertension who presented to the ER with 4 day history of worsening left sided weakness. Patient states he has chronic weakness on left side from hx of strokes, last stroke but last year. However on Wednesday he woke up feeling more weak on that side, making it difficult to ambulate. He's continued to feel weak this week. He denies sob, cough, fever, cp. He was noted in ER to be positive for covid. CT head, CTA h/n negative for acute findings. He takes eliquis and plavix. He will be admitted to stroke r/o. Patient is unable to have MRI due to loop recorder placement. Case Discussed With Case Discussed With: Patient's case was discussed with the ER Physicians, Dr. Guzman. [facility] Medical History Pacemaker Z95.0 - Presence of cardiac pacemaker (ICD-10) Mixed hyperlipidemia E78.2 - Mixed hyperlipidemia (ICD-10) Implantable loop recorder present Z95.818 - Presence of other cardiac implants and grafts (ICD-10) Recurrent strokes I63.9 - Cerebral infarction, unspecified (ICD-10) Low vitamin B12 level E53.8 - Deficiency of other specified B group vitamins (ICD-10) Ruptured lumbar disc M51.26 - Other intervertebral disc displacement, lumbar region (ICD-10) Myocardial infarction I21.9 - Acute myocardial infarction, unspecified (ICD-10) Elevated fasting blood sugar R73.01 - Impaired fasting glucose (ICD-10) Depression F32.9 - Major depressive disorder, single episode, unspecified (ICD-10) Atherosclerosis of coronary artery I25.10 - Atherosclerotic heart disease of [place] coronary artery without angina pectoris (ICD-10) Dyspnea on effort R06.00 - Dyspnea, unspecified (ICD-10) Stented coronary artery Z95.5 - Presence of coronary angioplasty implant and graft (ICD-10) Stye H00.019 - Hordeolum externum unspecified eye, unspecified eyelid (ICD-10) Surgical History History of loop recorder Z98.890 - Other specified postprocedural states (ICD-10) (09/13/18) Negative stress echo on 09/13/18 History of musculoskeletal system surgery (07/10/13) Back Surgery, Dr. Desir Work-Related injury Z98.890 - Other specified postprocedural states (ICD-10) Placement of stent in coronary artery (~2013) Dr. Dean Status post appendectomy age 12 Z90.49 - Acquired absence of other specified parts of digestive tract (ICD- 10) Family History Mother Diabetes History of knee replacement Cardiac disease Hypertension FATHER Diabetes Cardiac disease Lung cancer Hypertension SISTER Breast cancer, left Breast cancer, right BROTHER Cardiac disease Hypertension BROTHER Arthritis BROTHER Arthritis Social History Smoking and tobacco status: Former smoker Passive smoking exposure: No How long ago did patient quit smoking: approx age 27 Second hand smoke exposure: No Alcohol intake: current Alcohol intake frequency: holidays/special occasions only Alcohol type: beer Counseling given: No Counseling provided: none Substance use type: does not use [place]/caodaism: NONE Special [place] needs: No Agree to transfusion: Yes Adopted: No Caregiver/support person: No Foster care: No Household members: none Housing: house Marital status: D Lives independently: Yes Daycare: no daycare Number of children: 5 Number of grandchildren: 19 Highest education level completed: some college, no degree Financial difficulty paying for basics: not very hard service: Yes 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 custodial: No Current occupational status: disabled 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: , 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 Pets and animals: No Leisure activites: fishing and other History of recent travel: No Sexually active: No Do you think of yourself as: straight/heterosexual Current gender identity: male Seatbelt use: always Helmet use: No Drives intoxicated or rides with intoxicated fork truck driver: No Current diet type/program: regular Well-balanced diet: daily Caffeine: Yes Eating out: 4 or more times/week Reads food labels: seldom or never During the past year weight has: increased > 10 lbs Water heater temperature set < 120 degrees: Yes Working smoke detector in home: Yes Fire extinguisher in home: Yes Carbon monoxide detector in home: No Firearms in home: Yes Firearms unloaded and locked: Yes What type of physical activity do you participate in?: bicycling Physical activity functional status: independent ambulation How many days of moderate to strenuous exercise, like a brisk walk, did you do in the last 7 days: 0 Allergies Allergies Allergy/AdvReac Type Severity Reaction Status Date / Time clindamycin AdvReac Rash Verified 07/22/23 10:50 Current Medications Home Medications clopidogrel 75 mg tablet 75 mg PO DAILY #30 tabs 03/18/22 [Rx Confirmed 07/22/23 Last Taken 07/22/23] fenofibrate 160 mg tablet 160 mg PO QDAY #90 tabs 03/23/22 [Rx Confirmed 07/22/23 Last Taken 07/22/23] metoprolol tartrate 50 mg tablet 50 mg PO BID 30 days #60 tab-caps 03/24/22 [Rx Confirmed 07/22/23 Last Taken 07/22/23] amlodipine 5 mg tablet 5 mg PO QDAY 04/08/22 [History Confirmed 07/22/23 Last Taken 07/22/23] apixaban 5 mg tablet (Eliquis) 5 mg PO BID 04/08/22 [History Confirmed 07/22/23 Last Taken 07/22/23 08:00] lisinopril 5 mg tablet 40 mg PO ONCE 04/08/22 [History Confirmed 07/22/23 Last Taken 07/22/23] blood-glucose meter (Blood Glucose Monitoring kit) #1 ea 05/28/22 [Rx Confirmed 07/22/23 Last Taken Unknown] lancets 32 gauge #100 ea 05/28/22 [Rx Confirmed 07/22/23 Last Taken Unknown] blood sugar diagnostic (Blood Glucose Test strips) #100 ea 09/17/22 [Rx Confirmed 07/22/23 Last Taken Unknown] atorvastatin 80 mg tablet 80 mg PO QDAY hyperlipidemia #90 tabs 01/28/23 [Rx Confirmed 07/22/23 Last Taken 07/22/23] dapagliflozin propanediol 10 mg tablet (Farxiga) 10 mg PO DAILY 90 days #90 tab- caps 01/28/23 [Rx Confirmed 07/22/23 Last Taken 07/22/23] evolocumab 140 mg/mL subcutaneous pen injector (Repatha SureClick) 140 mg subcut Q2W #2 mL 01/28/23 [Rx Confirmed 07/22/23 Last Taken 07/11/23] ezetimibe 10 mg tablet 10 mg PO QDAY #90 tabs 01/28/23 [Rx Confirmed 07/22/23 Last Taken 07/22/23] insulin glargine 100 unit/mL (3 mL) subcutaneous pen (Lantus Solostar U-100 Insulin) 54 unit (0.54 mL) subcut BID 30 days #45 mL 03/15/23 [Rx Confirmed 07/22/23 Last Taken 07/22/23] sennosides 8.6 mg-docusate sodium 50 mg capsule (Senna Plus) 1 tab-cap PO BID PRN constipation #30 caps 04/03/23 [Rx Confirmed 07/22/23 Last Taken Unknown] buspirone 10 mg tablet See Rx Instructions .Route .COMPLEX #180 tabs 04/07/23 [Rx Confirmed 07/22/23 Last Taken 07/22/23 08:00] duloxetine 60 mg capsule,delayed release (Cymbalta) 60 mg PO QDAY #90 caps 04/12/23 [Rx Confirmed 07/22/23 Last Taken 07/22/23] hydrochlorothiazide 12.5 mg capsule See Rx Instructions .Route .COMPLEX #30 caps 04/12/23 [Rx Confirmed 07/22/23 Last Taken 07/22/23] pen needle, diabetic 33 gauge x 3/16" (Comfort EZ Pen Tasley) #100 ea 06/23/23 [Rx Confirmed 07/22/23 Last Taken Unknown] baclofen 10 mg tablet See Rx Instructions .Route .COMPLEX #30 tabs 06/28/23 [Rx Confirmed 07/22/23 Last Taken 07/22/23] dulaglutide 3 mg/0.5 mL subcutaneous pen injector 3 mg (0.5 mL) subcut QWEEK diabetes mellitus type 2 #2 mL 07/04/23 [Rx Confirmed 07/22/23 Last Taken 07/18/23] omeprazole 40 mg capsule,delayed release See Rx Instructions .Route .COMPLEX #90 caps 07/08/23 [Rx Confirmed 07/22/23 Last Taken 07/22/23] gabapentin 600 mg tablet See Rx Instructions .Route .COMPLEX #180 tabs 07/09/23 [Rx Confirmed 07/22/23 Last Taken 07/22/23] Home Acetaminophen (Acetaminophen 325 Mg Tablet) 650 mg PO Q4H PRN PRN Reason: Mild Pain Apixaban (Apixaban 5 Mg Tab) 5 mg PO BID RENETTA Atorvastatin Calcium (Atorvastatin Calcium 20 Mg Tablet) 80 mg PO DAILY RENETTA Baclofen (Baclofen 10 Mg Tablet) 10 mg PO DAILY RENETTA Buspirone HCl (Buspirone Hcl 10 Mg Tablet) 10 mg PO BID RENETTA Clopidogrel Bisulfate (Clopidogrel Bisulfate 75 Mg Tablet) 75 mg PO DAILY RENETTA Duloxetine HCl (Duloxetine Hcl 30 Mg Capsule.) 60 mg PO DAILY RENETTA Ezetimibe (Ezetimibe 10 Mg Tablet) 10 mg PO DAILY RENETTA Empagliflozin (Empagliflozin 10 Mg Tablet) 25 mg PO DAILY RENETTA Fenofibrate (Fenofibrate 160 Mg Tablet) 160 mg PO DAILY RENETTA Gabapentin (Gabapentin 300 Mg Capsule) 0 mg PO .COMPLEX RENETTA Sodium Chloride (Sodium Chloride) 1,000 mls @ 125 mls/hr IV .Q8H ONE Stop: 07/22/23 18:57 Last Admin: 07/22/23 11:06 Dose: 125 mls/hr Remdesivir 200 mg/ Sodium (Chloride) 250 mls @ 250 mls/hr IV ONCE ONE Stop: 07/22/23 15:39 Lactated Ringer's (Lactated Ringers) 1,000 mls @ 75 mls/hr IV .[id number] RENETTA Remdesivir 100 mg/ Sodium (Chloride) 100 mls @ 200 mls/hr IV DAILY RENETTA Stop: 07/26/23 09:29 Insulin Glargine (Insulin Glargine,Hum.Rec.Anlog 100 Units/Ml) 54 unit SUBCUT B ID RENETTA Insulin Human Lispro (Insulin Lispro 100 Unit/Ml Vial) 0 unit SUBCUT PRN PRN; Protocol PRN Reason: Hyperglycemia Omeprazole (Omeprazole 20 Mg Capsule.) 40 mg PO QDAC2 RENETTA Ondansetron HCl (Ondansetron Hcl/Pf 4 Mg/2 Ml Sdv) 4 mg IVP Q6H PRN PRN Reason: Nausea / Vomiting Sodium Chloride (0.9% Sodium Chloride 10 Ml Disp.Syrin) 1 syr IVF PRN PRN PRN Reason: To flush IV Discontinued Medications Aspirin (Aspirin 81 Mg Tab.Chew) 324 mg PO ONCE STA Stop: 07/22/23 11:42 Last Admin: 07/22/23 11:47 Dose: 324 mg Opioid Naive vs. Tolerant Does Patient Take Opioids?: No Is Patient Opioid Naive?: Yes What is Opioid Naive?: *Opioid Naive implies the patient is not already taking opioids or not chronically receiving opioids on a daily basis. *PRN dosing is not "usually" associated with tolerance. *Patients are at higher risk of over-sedation and aspiration. Is Patient Opioid Tolerant?: No What is Opioid Tolerant?: *Opioid Tolerance implies less than the expected response to an opioid. *Acquired tolerance is defined by the patient taking 60mg of oral morphine daily (or equianalgesic dose of another opioid) for 1 week or more. *Often associated with chronic pain. *May take more than usual dose to achieve desired pain control. Review of Systems Constitutional: Reports Fatigue and Weakness; Denies Fever Head: Reports Normocephalic and Atraumatic Throat: Denies Sore Throat or Difficulty Swallowing Cardiovascular: Denies Chest pain, Chest Pressure or Edema Respiratory: Denies Cough or Shortness of air Gastrointestinal: Denies Nausea, Vomiting, Diarrhea, Abdominal pain or Melena Genitourinary: Denies Dysuria or Hematuria Neurological: Reports Weakness and Problems with walking; Denies Headache, Dizziness or Syncope Physical examination Most Recent Vital Signs: Most Recent Vital Signs Temperature 98.5 F 07/22/23 10:46 Temperature Source Oral 07/22/23 10:46 Pulse Rate 77 07/22/23 10:46 Respiratory Rate 18 07/22/23 10:46 Blood Pressure 114/72 07/22/23 10:46 O2 Sat by Pulse Oximetry 97 07/22/23 10:46 Height 6 ft 2 in 07/22/23 10:46 Weight 240 lb 8.389 oz 07/22/23 10:46 Appearance: Positive No Apparent Distress and Alert and Oriented x3 Skin: Positive Gol[place], Warm and Good Turgor HEENT: Positive Normocephalic and Atraumatic Neck: Positive Supple and Midline Trachea Chest/Lungs: Positive Clear to Auscultation Bilaterally; Negative Rales, Rhonci or Wheezes Heart: Positive RRR GI/: Positive Soft, Nontender and Bowel Sounds Normal Extremities: Positive Intact Peripheral Pulses; Negative Edema Neurological: Positive Cranial Nerves Intact, Alert, Oriented and Other (+left sided weakness of LUE and LLE compared to right, mostly chronic per patient. No other deficits noted. Facial features symmetric. Finger to nose normal. ) Psychiatric: Positive Oriented x4, Appropriate Mood and Appropriate Affect Labs This Visit Labs This Visit: Labs This Visit 07/22/23 07/22/23 07/22/23 10:53 10:58 12:49 WBC 7.12 RBC 5.04 Hgb 13.9 L Hct 42.9 MCV 85.1 MCH 27.6 MCHC 32.4 RDW Coeff of [place] 13.7 Plt Count 209 Immature Gran % (Auto) 0.3 Neut % (Auto) 67.1 Lymph % (Auto) 19.5 Alfalfa % (Auto) 11.7 H Eos % (Auto) 1.1 Baso % (Auto) 0.3 Neut # (Auto) 4.8 Lymph # (Auto) 1.4 Alfalfa # (Auto) 0.8 Eos # (Auto) 0.1 Baso # (Auto) 0.0 Immature Gran # (Auto) 0.0 PT 10.6 INR 1.02 APTT 32.8 Sodium 135.2 Potassium 3.45 L Chloride 103.6 Carbon Dioxide 25.3 Anion Gap 9.75 BUN 14.9 Creatinine 1.37 H Estimated GFR (MDRD) 53.00 BUN/Creatinine Ratio 10.87 Glucose 243.9 H Calcium 9.15 Total Bilirubin 0.92 AST 22.5 ALT 28.3 Alkaline Phosphatase 65.9 Troponin I < 0.012 Total Protein 7.75 Albumin 4.24 Globulin 3.51 Albumin/Globulin Ratio 1.20 Urine Color Yellow Urine Clarity Clear Urine pH 5.5 Ur Specific [place] 1.010 Urine Protein Negative Urine Glucose (UA) 2+ H Urine Ketones Negative Urine Blood Negative Urine Nitrite Negative Urine Bilirubin Negative Urine Urobilinogen 0.2 Ur Leukocyte Esterase Negative Acetone, Qual Trace Influ A Molecular Assay Negative by naat Influ B Molecular Assay Negative by naat RSV Antigen Negative by naat SARS CoV-2 RNA Rapid FRANCINE Positive H Imaging Imaging: EXAM: CT HEAD WITHOUT CONTRAST HISTORY: History of stroke, left-sided deficits COMPARISON: O 12/06/2022 TECHNIQUE: Serial axial images of the brain were obtained from the skull base to the vertex without IV contrast. FINDINGS: No acute intracranial hemorrhage. No hydrocephalus. No midline shift. Parenchymal volume loss. Chronic microangiopathy. Areas of encephalomalacia in the right cerebellar hemisphere and occipital lobe, stable. The calvarium is intact. IMPRESSION: No acute intracranial abnormality. Stable chronic findings. EXAM: CTA NECK HISTORY: Left-sided deficit. TECHNIQUE: CT angiography of the neck was performed with coronal and sagittal 3-D MIPS reconstructions. Internal carotid artery stenosis are assessed utilizing NASCET criteria. COMPARISON: None. FINDINGS: The visualized portions of the aortic arch are within normal limits. The origin of the right common carotid artery is patent. There is atherosclerotic calcification at the right carotid bulb without significant stenosis. The origin of the left common carotid artery is patent. The left common carotid artery has a normal course and caliber within the neck. The left carotid bifurcation and carotid bulb are normal. The cervical segment of the left internal carotid artery is normal in contour and caliber without significant stenosis. The right vertebral artery is normal in contour and caliber without significant stenosis. The left vertebral artery is normal in contour and caliber without significant stenosis. No aneurysm or vascular malformation is identified. There is multilevel disc desiccation and degenerative change involving posterior disc osteophyte complexes, facet joint hypertrophy, and uncovertebral joint hypertrophy resulting in various degrees of central canal and neural foraminal stenosis. IMPRESSION: No carotid or vertebral artery stenosis EXAM: CTA HEAD HISTORY: Left sided neural deficit. COMPARISON: Same day brain CT. TECHNIQUE: Unenhanced CT of the head was performed from the skull base to the vertex. CT angiography of the head was performed with 3D/MIP coronal and sagittal reconstructions for evaluation of the [place]. FINDINGS: CT head: Again seen is encephalomalacia in the right occipital lobe and right cerebellum. No intracranial hemorrhage or extra-axial collection. No mass, mass effect or midline shift. The wilcox-white matter differentiation is preserved. The ventricles are normal in size. The basal cisterns are patent. Mucosal thickening is noted in the bilateral ethmoid and maxillary sinuses. The mastoid air cells are clear. The orbits are unremarkable. The visualized osseous structures are unremarkable. CTA head: The distal cervical, petrous, cavernous, and supraclinoid segments of the internal carotid arteries are normal in contour and caliber. The anterior and middle cerebral arteries are normal in contour and caliber without large vessel occlusion. The vertebrobasilar system is patent. The superior cerebellar and posterior cerebral arteries are normal in contour and caliber. There is no intracranial aneurysm or arteriovenous malformation. IMPRESSION: 1. No acute intracranial findings. 2. Encephalomalacia in the right occipital lobe and right cerebellum. 3. No large vessel occlusion or high grade stenosis within the [place]. Review Statement Review Statement: I have independently reviewed and interpreted the labs/EKGs/imaging that were ordered by the ER provider. I have reviewed all outside records that are available currently in our EMR including imaging/notes/labs from previous visits. Plan Plan: 1. CVA r/o - Could be exacerbated by covid. Unable to do MRI due to loop recorder. Will get CT head w/ contrast tomorrow when able to have contrast again. CT head and CTA h/n negative for acute findings today. Echo ordered. Lipid and a1c ordered for AM. Hold antihypertensives for now. Received ASA in ER. 2. Covid - Covid isolation. Symptoms x4 days. Discussed risks vs benefits of remdesivir 3 day course due to his comorbidities. He would like to proceed. 3. Hypertension - Cont home meds 4. Hx of multiple CVAs and MIs - Cont home meds 5. DMT2 - diabetic diet, accuchecks achs, humalog sliding scale, cont home meds 6. Hyperlipidemia - Cont home meds 7. GERD - Cont home meds DVT Prophylaxis: Eliquis Time Spent: Greater than 80 minutes spent with patient, 50% of the time spent with this patient was devoted to counseling and coordination of care. [facility] minutes spent discussing advance care planning. Admit to: Obs Discussed Plan of Care with Dr. Mariza Palma. Medications Medication Orders: Medications Ordered Category Date Time Status 0.9 % Sodium Chloride [Saline Flush] Meds 07/22/23 10:49 Active 1 syr IVF PRN PRN Sodium Chloride 0.9% [Sodium Chloride] 1,000 ml Meds 07/22/23 10:58 Active IV 125 mls/hr
[2023-07-22 14:31] VITALS: BMI 30.4
[2023-07-22] MEDS ORDERED: TYLENOL PO PRN (14:31)
[2023-07-22] MEDS ORDERED: ZOFRAN 4 MG/2 ML IVP PRN (14:31)
[2023-07-22] MEDS ORDERED: BUSPAR PO SCH (15:00)
[2023-07-22] MEDS ORDERED: TRIGLIDE PO SCH (15:00)
[2023-07-22] MEDS ORDERED: PRILOSEC PO SCH (15:00)
[2023-07-22] MEDS ORDERED: NEURONTIN PO SCH (15:00)
[2023-07-22] MEDS ORDERED: LIPITOR PO SCH (15:00)
[2023-07-22] MEDS ORDERED: CYMBALTA PO SCH (15:00)
[2023-07-22] MEDS ORDERED: ZETIA PO SCH (15:00)
[2023-07-22] MEDS ORDERED: BACLOFEN PO SCH (15:00)
[2023-07-22] MEDS: VEKLURY 200 MG in SODIUM CHLORIDE 250 ML IV ONE (15:23)
[2023-07-22] MEDS: NEURONTIN PO SCH (16:39)
[2023-07-22] MEDS: LACTATED RINGERS 1,000 ML IV SCH (16:40)
[2023-07-22] MEDS: HUMALOG SUBCUT PRN (17:45)
[2023-07-22] MEDS: BUSPAR PO SCH (20:30)
[2023-07-22] MEDS: ELIQUIS PO SCH (20:30)
[2023-07-22] MEDS: LANTUS SUBCUT SCH (20:32)
[2023-07-22] MEDS: TESSALON PERLES PO ONE (23:54)
[2023-07-23] MEDS: PRILOSEC PO SCH (05:14)
[2023-07-23 05:35] LABS: BASOPHILS % (AUTO) 0.2 % (0.0-3.0); EOSINOPHILS # (AUTO) 0.1 K/ul (0.0-0.7); HEMOGLOBIN 12.4 g/dl (14.0-18.0); IMMATURE GRANULOCYTE % (AUTO) 0.2 % (0.0-5.0); LYMPHOCYTES # (AUTO) 1.5 K/uL (0.60-3.4); LYMPHOCYTES % (AUTO) 30.6 (10.0-50.0); MEAN CORPUSCULAR HEMOGLOBIN 27.5 pg (27.0-31.0); MEAN CORPUSCULAR HGB CONC 32.6 (31.8-35.4); MEAN CORPUSCULAR VOLUME 84.3 fl (80.0-94.0); MONOCYTES # (AUTO) 0.6 K/uL (0.4-2.0); MONOCYTES % (AUTO) 11.8 (0-10); NEUTROPHILS # (AUTO) 2.8 K/ul (2.0-6.9); NEUTROPHILS % (AUTO) 55.2 % (42.2-75.2); PLATELET COUNT 166 10^3/uL (140-440); RDW COEFFICIENT OF VARIATION 13.5 % (11.6-14.8); RED BLOOD COUNT 4.51 10^6/ul (4.70-6.10)
[2023-07-23 05:42] LABS: PROTHROMBIN TIME 10.7 SEC (9.3-11.0)
[2023-07-23 05:48] LABS: CHOLESTEROL 107.6 mg/dL (0-200); HDL CHOLESTEROL 29.4 mg/dL (35-60); TRIGLYCERIDES 102.5 mg/dL (0-150)
[2023-07-23 05:49] LABS: ALANINE AMINOTRANSFERASE 27.3 U/L (0-50); ALBUMIN 3.59 g/dL (3.5-5.0); BILIRUBIN,TOTAL 0.62 mg/dL (0.2-1.3); BLOOD UREA NITROGEN 17.4 mg/dL (9-20); CALCIUM 8.56 mg/dL (8.4-10.2); CARBON DIOXIDE 24.6 mmol/L (22-30.0); CHLORIDE 108.1 mmol/L (98-107); CREATININE 1.01 mg/dL (0.60-1.10); GLUCOSE 109.6 mg/dL (74-106); POTASSIUM 3.38 mmol/L (3.5-5.1); SODIUM 137.8 mmol/L (134.5-145); TOTAL PROTEIN 6.55 g/dL (6.3-8.2)
[2023-07-23] MEDS: BACLOFEN PO SCH (09:00)
[2023-07-23] MEDS: JARDIANCE PO SCH (09:00)
[2023-07-23] MEDS ORDERED: NON-FORMULARY MEDICATION (Dapagliflozin Propanediol [Farxiga] 10 mg tablet) PO SCH (09:00)
[2023-07-23] MEDS: CYMBALTA PO SCH (09:01)
[2023-07-23] MEDS: LIPITOR PO SCH (09:01)
[2023-07-23] MEDS: TRIGLIDE PO SCH (09:02)
[2023-07-23] MEDS: PLAVIX PO SCH (09:02)
[2023-07-23] MEDS: ZETIA PO SCH (09:02)
--- NOTE | 2023-07-23 09:32 | DCSUM ---
Admission Date Admission Date: 07/22/23 Discharge Date Discharge Date: 07/23/23 Admission Diagnosis Admission Diagnosis: 1. CVA r/o 2. Covid Discharge Diagnosis Discharge Diagnosis: 1. Acute on chronic left sided weakness 2. Covid 3. Hypertension 4. Hx of multiple CVAs and MIs 5. DMT2 6. Hyperlipidemia 7. GERD Hospital Provider Hospital Provider: CYNDY MAIER PA-C, [facility] Primary Care Physician Primary Care Physician: VELIA DONNELLY MD Summary of History and Physical Summary of History and Physical: Patient is a 63 year old male from home with pmhx of multiple CVAs, OR x2, diabetes, hyperlipidemia, b12 deficiency, hypertension who presented to the ER with 4 day history of worsening left sided weakness. Patient states he has chronic weakness on left side from hx of strokes, last stroke but last year. However on Wednesday he woke up feeling more weak on that side, making it difficult to ambulate. He's continued to feel weak this week. He denies sob, cough, fever, cp. He was noted in ER to be positive for covid. CT head, CTA h/n negative for acute findings. He takes eliquis and plavix. He will be admitted to stroke r/o. Patient is unable to have MRI due to loop recorder placement. Hospital Course Subjective: Patient symptoms remained unchanged. He worked with therapy. Discussed left sided weakness that is worse than his usual could be exacerbated by his covid. Repeat CT head was negative for acute changes. Unable to perform MRI due to his loop recorder. Will not send on holter since he has a loop. He can f/u with cardiology. States it is supposed to come out on 07/28 anyhow. Echo performed, no gross abnormalities noted. Regarding covid, patient is doing well from a respiratory standpoint. We discussed pros and cons of remdesivir due to his comorbidities. Will complete 3 day course. He will return tomorrow as an outpatient for his 3rd dose. Not a candidate for paxlovid due to his medications. F/u with pcp within 1 week. Recommend outpatient f/u with neuro and cards. Cont eliquis and plavix. Appearance: Pleasant, No Apparent Distress and Alert HEENT: MMM CVS: No Murmur Abdomen: Soft, Non-Tender and No Distention Respiratory: No Accessory Muscle Use Extremities: No Edema Additional Findings: +chronic left sided weakness compared to right, upper and lower ext. Equal facial expressions. Vital Signs: Most Recent Vital Signs Temperature 97.2 F L 07/23/23 05:14 Temperature Source Temporal Artery Scan 07/23/23 05:14 Temperature Source Oral 07/22/23 10:46 Pulse Rate 57 L 07/23/23 05:14 Respiratory Rate 20 07/23/23 05:14 Blood Pressure 142/64 H 07/23/23 05:14 Blood Pressure Mean 90 07/23/23 05:14 Blood Pressure Right Arm 127/70 07/22/23 14:21 Blood Pressure Location Left Arm 07/23/23 05:14 Blood Pressure Position Supine 07/23/23 05:14 O2 Sat by Pulse Oximetry 98 07/23/23 05:14 Oxygen Delivery Method Room Air 07/23/23 06:00 Height 6 ft 2 in 07/22/23 14:21 Weight 237 lb 07/22/23 14:21 Telemetry Type Bedside Monitor 07/23/23 01:00 Telemetry Monitoring Continues 07/23/23 01:00 Telemetry Heart Rate 67 07/23/23 01:00 Telemetry SPO2 92 L 07/23/23 01:00 EKG CO Interval 0.18 07/23/23 01:00 EKG QRS Interval 0.04 L 07/23/23 01:00 Telemetry Strip Reading SR 07/23/23 01:00 Imaging: EXAM: CT HEAD WITHOUT CONTRAST HISTORY: History of stroke, left-sided deficits COMPARISON: O 12/06/2022 TECHNIQUE: Serial axial images of the brain were obtained from the skull base to the vertex without IV contrast. FINDINGS: No acute intracranial hemorrhage. No hydrocephalus. No midline shift. Parenchymal volume loss. Chronic microangiopathy. Areas of encephalomalacia in the right cerebellar hemisphere and occipital lobe, stable. The calvarium is intact. IMPRESSION: No acute intracranial abnormality. Stable chronic findings. EXAM: CTA NECK HISTORY: Left-sided deficit. TECHNIQUE: CT angiography of the neck was performed with coronal and sagittal 3-D MIPS reconstructions. Internal carotid artery stenosis are assessed utilizing NASCET criteria. COMPARISON: None. FINDINGS: The visualized portions of the aortic arch are within normal limits. The origin of the right common carotid artery is patent. There is atherosclerotic calcification at the right carotid bulb without significant stenosis. The origin of the left common carotid artery is patent. The left common carotid artery has a normal course and caliber within the neck. The left carotid bifurcation and carotid bulb are normal. The cervical segment of the left internal carotid artery is normal in contour and caliber without significant stenosis. The right vertebral artery is normal in contour and caliber without significant stenosis. The left vertebral artery is normal in contour and caliber without significant stenosis. No aneurysm or vascular malformation is identified. There is multilevel disc desiccation and degenerative change involving posterior disc osteophyte complexes, facet joint hypertrophy, and uncovertebral joint hypertrophy resulting in various degrees of central canal and neural foraminal stenosis. IMPRESSION: No carotid or vertebral artery stenosis EXAM: CTA HEAD HISTORY: Left sided neural deficit. COMPARISON: Same day brain CT. TECHNIQUE: Unenhanced CT of the head was performed from the skull base to the vertex. CT angiography of the head was performed with 3D/MIP coronal and sagittal reconstructions for evaluation of the [place]. FINDINGS: CT head: Again seen is encephalomalacia in the right occipital lobe and right cerebellum. No intracranial hemorrhage or extra-axial collection. No mass, mass effect or midline shift. The wilcox-white matter differentiation is preserved. The ventricles are normal in size. The basal cisterns are patent. Mucosal thickening is noted in the bilateral ethmoid and maxillary sinuses. The mastoid air cells are clear. The orbits are unremarkable. The visualized osseous structures are unremarkable. CTA head: The distal cervical, petrous, cavernous, and supraclinoid segments of the internal carotid arteries are normal in contour and caliber. The anterior and middle cerebral arteries are normal in contour and caliber without large vessel occlusion. The vertebrobasilar system is patent. The superior cerebellar and posterior cerebral arteries are normal in contour and caliber. There is no intracranial aneurysm or arteriovenous malformation. IMPRESSION: 1. No acute intracranial findings. 2. Encephalomalacia in the right occipital lobe and right cerebellum. 3. No large vessel occlusion or high grade stenosis within the [place]. EXAM: CT HEAD WITHOUT CONTRAST HISTORY: CTA symptoms COMPARISON: 07/22/2023 TECHNIQUE: Serial axial images of the brain were obtained from the skull base to the vertex without IV contrast. FINDINGS: No acute intracranial hemorrhage. No hydrocephalus. No midline shift. Parenchymal volume loss. Chronic microangiopathy. The calvarium is intact. Area of encephalomalacia in the right occipital lobe and right cerebellar hemisphere. Old lacunar infarct in the right basal ganglia/internal capsule IMPRESSION: No acute intracranial abnormality. Stable chronic findings. If symptoms persist, consider follow-up MRI brain. Echo final report pending Lab Results Last 24 Hours: 07/23/23 07/22/23 07/22/23 05:27 12:49 10:58 WBC 5.00 7.12 RBC 4.51 L 5.04 Hgb 12.4 L 13.9 L Hct 38.0 L 42.9 MCV 84.3 85.1 MCH 27.5 27.6 MCHC 32.6 32.4 RDW Coeff of Isaura 13.5 13.7 Plt Count 166 209 Immature Gran % (Auto) 0.2 0.3 Neut % (Auto) 55.2 67.1 Lymph % (Auto) 30.6 19.5 Woods % (Auto) 11.8 H 11.7 H Eos % (Auto) 2.0 1.1 Baso % (Auto) 0.2 0.3 Neut # (Auto) 2.8 4.8 Lymph # (Auto) 1.5 1.4 Woods # (Auto) 0.6 0.8 Eos # (Auto) 0.1 0.1 Baso # (Auto) 0.0 0.0 Immature Gran # (Auto) 0.0 0.0 PT 10.7 10.6 INR 1.03 1.02 APTT 32.8 Sodium 137.8 135.2 Potassium 3.38 L 3.45 L Chloride 108.1 H 103.6 Carbon Dioxide 24.6 25.3 Anion Gap 8.48 9.75 BUN 17.4 14.9 Creatinine 1.01 1.37 H Estimated GFR (MDRD) 75.00 53.00 BUN/Creatinine Ratio 17.22 10.87 Glucose 109.6 H D 243.9 H Hemoglobin A1c 8.92 H Calcium 8.56 9.15 Total Bilirubin 0.62 0.92 AST 26.0 22.5 ALT 27.3 28.3 Alkaline Phosphatase 53.0 L 65.9 Troponin I < 0.012 Total Protein 6.55 7.75 Albumin 3.59 4.24 Globulin 2.96 3.51 Albumin/Globulin Ratio 1.21 1.20 Triglycerides 102.5 Cholesterol 107.6 LDL Cholesterol, Calc 58 VLDL Cholesterol 21 HDL Cholesterol 29.4 L Cholesterol/HDL Ratio 3.7 L Urine Color Yellow Urine Clarity Clear Urine pH 5.5 Ur Specific [place] 1.010 Urine Protein Negative Urine Glucose (UA) 2+ H Urine Ketones Negative Urine Blood Negative Urine Nitrite Negative Urine Bilirubin Negative Urine Urobilinogen 0.2 Ur Leukocyte Esterase Negative Acetone, Qual Trace Influ A Molecular Assay Influ B Molecular Assay RSV Antigen SARS CoV-2 RNA Rapid FRANCINE 07/22/23 10:53 WBC RBC Hgb Hct MCV MCH MCHC RDW Coeff of [place]aura Plt Count Immature Gran % (Auto) Neut % (Auto) Lymph % (Auto) Woods % (Auto) Eos % (Auto) Baso % (Auto) Neut # (Auto) Lymph # (Auto) Woods # (Auto) Eos # (Auto) Baso # (Auto) Immature Gran # (Auto) PT INR APTT Sodium Potassium Chloride Carbon Dioxide Anion Gap BUN Creatinine Estimated GFR (MDRD) BUN/Creatinine Ratio Glucose Hemoglobin A1c Calcium Total Bilirubin AST ALT Alkaline Phosphatase Troponin I Total Protein Albumin Globulin Albumin/Globulin Ratio Triglycerides Cholesterol LDL Cholesterol, Calc VLDL Cholesterol HDL Cholesterol Cholesterol/HDL Ratio Urine Color Urine Clarity Urine pH Ur Specific [place] Urine Protein Urine Glucose (UA) Urine Ketones Urine Blood Urine Nitrite Urine Bilirubin Urine Urobilinogen Ur Leukocyte Esterase Acetone, Qual Influ A Molecular Assay Negative by naat Influ B Molecular Assay Negative by naat RSV Antigen Negative by naat SARS CoV-2 RNA Rapid FRANCINE Positive H Discharge Instructions Discharge Planning: Discharge Planning > [address] Mariza Palma. Discharge Medications: Medications at Discharge (Home Meds & RX) clopidogrel 75 mg tablet 75 mg PO DAILY #30 tabs 03/18/22 fenofibrate 160 mg tablet 160 mg PO QDAY #90 tabs 03/23/22 metoprolol tartrate 50 mg tablet 50 mg PO BID 30 days #60 tab-caps 03/24/22 amlodipine 5 mg tablet 5 mg PO QDAY 04/08/22 apixaban 5 mg tablet (Eliquis) 5 mg PO BID 04/08/22 lisinopril 5 mg tablet 40 mg PO ONCE 04/08/22 blood-glucose meter (Blood Glucose Monitoring kit) #1 ea 05/28/22 lancets 32 gauge #100 ea 05/28/22 blood sugar diagnostic (Blood Glucose Test strips) #100 ea 09/17/22 atorvastatin 80 mg tablet 80 mg PO QDAY hyperlipidemia #90 tabs 01/28/23 dapagliflozin propanediol 10 mg tablet (Farxiga) 10 mg PO DAILY 90 days #90 tab- caps 01/28/23 evolocumab 140 mg/mL subcutaneous pen injector (Repatha SureClick) 140 mg subcut Q2W #2 mL 01/28/23 ezetimibe 10 mg tablet 10 mg PO QDAY #90 tabs 01/28/23 insulin glargine 100 unit/mL (3 mL) subcutaneous pen (Lantus Solostar U-100 Insulin) 54 unit (0.54 mL) subcut BID 30 days #45 mL 03/15/23 sennosides 8.6 mg-docusate sodium 50 mg capsule (Senna Plus) 1 tab-cap PO BID PRN constipation #30 caps 04/03/23 buspirone 10 mg tablet See Rx Instructions .Route .COMPLEX #180 tabs 04/07/23 duloxetine 60 mg capsule,delayed release (Cymbalta) 60 mg PO QDAY #90 caps 04/12/23 hydrochlorothiazide 12.5 mg capsule See Rx Instructions .Route .COMPLEX #30 caps 04/12/23 pen needle, diabetic 33 gauge x 3/16" (Comfort EZ Pen [place]) #100 ea 06/23/23 baclofen 10 mg tablet See Rx Instructions .Route .COMPLEX #30 tabs 06/28/23 dulaglutide 3 mg/0.5 mL subcutaneous pen injector 3 mg (0.5 mL) subcut QWEEK diabetes mellitus type 2 #2 mL 07/04/23 omeprazole 40 mg capsule,delayed release See Rx Instructions .Route .COMPLEX #90 caps 07/08/23 gabapentin 600 mg tablet See Rx Instructions .Route .COMPLEX #180 tabs 07/09/23 Discharge Plan Discharge Discharge Orders: Discharge Patient (ONCE); Ordered 07/23/23 Ordered By: CYNDY MAIER Activity Restrictions/Additional Instructions: DISCHARGE TO HOME DX: LEFT SIDED WEAKNESS, COVID COME BACK TOMORROW FOR 3RD DOSE OF REMDESIVIR DISCHARGE WITH IV ACCESS IN PLACE THEN TO BE DISCONTINUED AFTER INFUSION WILL NEED TO WEAR AN N95 MASK AROUND OTHERS UNTIL 08/02/2023 (TOTAL OF 10 DAYS ISOLATION) CONTINUE HOME MEDS DIET: DIABETIC ACTIVITY: TOLERATED, PT/OT RECOMMENDED Instructions: COVID-19 (Coronavirus Disease 2019) (DC) Patient Disposition: HOME SELF-CARE Prescriptions: Continued clopidogrel 75 mg tablet 75 mg PO DAILY Qty: 30 2RF fenofibrate 160 mg tablet 160 mg PO QDAY Qty: 90 1RF Rx Instructions: take 1 po daily metoprolol tartrate 50 mg tablet 50 mg PO BID 30 Days Qty: 60 5RF Rx Instructions: Dianne insulin glargine [Lantus Solostar U-100 Insulin] 100 unit/mL (3 mL) insulin pen 54 unit subcut BID 30 Days Qty: 45 1RF buspirone 10 mg tablet See Rx Instructions .ROUTE .COMPLEX Qty: 180 2RF Dose Instruction: TAKE ONE TABLET TWICE DAILY Rx Instructions: TAKE ONE TABLET TWICE DAILY baclofen 10 mg tablet See Rx Instructions .ROUTE .COMPLEX Qty: 30 2RF Dose Instruction: TAKE ONE TABLET DAILY Rx Instructions: TAKE ONE TABLET DAILY dulaglutide 3 mg/0.5 mL pen injector 3 mg subcut QWEEK Qty: 2 5RF omeprazole 40 mg capsule,delayed release(DR/EC) See Rx Instructions .ROUTE .COMPLEX Qty: 90 2RF Dose Instruction: TAKE ONE CAPSULE DAILY Rx Instructions: TAKE ONE CAPSULE DAILY gabapentin 600 mg tablet See Rx Instructions .ROUTE .COMPLEX Qty: 180 2RF Dose Instruction: TAKE TWO TABLETS THREE TIMES DAILY Rx Instructions: TAKE TWO TABLETS THREE TIMES DAILY Senna Plus 8.6-50 mg capsule 1 tab-cap PO BID PRN (Reason: constipation) Qty: 30 0RF atorvastatin 80 mg tablet 80 mg PO QDAY Qty: 90 1RF dapagliflozin propanediol [Farxiga] 10 mg tablet 10 mg PO DAILY 90 Days Qty: 90 3RF Repatha SureClick 140 mg/mL pen injector 140 mg subcut Q2W Qty: 2 3RF ezetimibe 10 mg tablet 10 mg PO QDAY Qty: 90 0RF hydrochlorothiazide 12.5 mg capsule See Rx Instructions .ROUTE .COMPLEX Qty: 30 2RF Dose Instruction: TAKE ONE CAPSULE DAILY Rx Instructions: TAKE ONE CAPSULE DAILY duloxetine [Cymbalta] 60 mg capsule,delayed release(DR/EC) 60 mg PO QDAY Qty: 90 1RF lisinopril 5 mg tablet 40 mg PO ONCE amlodipine 5 mg tablet 5 mg PO QDAY Eliquis 5 mg tablet 5 mg PO BID No Action (DME) lancets 32 gauge misc See Rx Instructions .ROUTE .MEDSUPPLY Qty: 100 6RF Rx Instructions: As directed once daily. Accuchek or True Metrics or Radha (DME) blood-glucose meter [Blood Glucose Monitoring] Kit See Rx Instructions .ROUTE Qty: 1 5RF Rx Instructions: once daily fasting Accuchek or True Metrics or Radha (DME) pen needle, diabetic [Comfort EZ Pen [place]] 33 gauge x 3/16" needle See Rx Instructions .ROUTE .MEDSUPPLY Qty: 100 6RF Rx Instructions: As directed (DME) Blood Glucose Test Strip 1 ea MC DAILY Qty: 100 3RF Rx Instructions: Check Blood Sugar fasting once daily. Did you review [place] SAFETY MANAGER for ALL controlled substances?: Not Applicable Discussed opioids are addictive and Narcan is available by prescription or from pharmacy.: No Condition: Stable Referrals: VELIA DONNELLY MD [Primary Care Provider] - 08/02/23 10:15 am
[2023-07-23] MEDS: VEKLURY 100 MG in SODIUM CHLORIDE 100ML 100 ML IV SCH (09:39)
[2023-07-23] MEDS: K-DUR PO ONE (11:53)
--- NOTE | 2023-07-23 12:02 | CT ---
EXAM: CT HEAD WITHOUT CONTRAST HISTORY: CTA symptoms COMPARISON: 07/22/2023 TECHNIQUE: Serial axial images of the brain were obtained from the skull base to the vertex without IV contrast. FINDINGS: No acute intracranial hemorrhage. No hydrocephalus. No midline shift. Parenchymal volume loss. Chronic microangiopathy. The calvarium is intact. Area of encephalomalacia in the right occipital lobe and right cerebellar hemisphere. Old lacunar in farct in the right basal ganglia/internal capsule IMPRESSION: No acute intracranial abnormality. Stable chronic findings. If symptoms persist, consider follow-up MRI brain. All CT scans are performed using dose optimization techniques as appropriate to the performed exam an d include at least one of the following: Automated exposure control, adjustment of the mA and/or kV according t o size, and the use of iterative reconstruction technique.
[2023-07-23 14:16] VITALS: BP 122/58; PULSE 75; RESP 15; TEMP 98.3
--- NOTE | 2023-07-25 16:31 | ECHO2D ---
Date of Exam: 07/23/2023 Ordering Physician: HOSPITALIST--MARSHALL/ PCP -DR. DONNELLY Room #: SCU1 Reason for Echo: CAD, DM2, PACEMAKER, COVID POSITIVE, CVA, WEAKNESS, HX TX, CKD, CATH--VENTRICLE CLOT, EJECTION FRACTION 45% M-Mode Normal Adult Results LV Dimensions Normal Adult Results AoV Opening excursions >1.6 >1.6 LVEDD-base- 3.5-5.8 6.0 Ao root dimensions 2.0-3.7 3.1 LVESD-base- 3.1-4.6 L. Atrium dimensions 1.9-3.8 3.9 Post. Wall thickness 0.8-1.1 1.2 IV septum (thickness) 0.7-1.2 1.4 Post. Wall excursion 0.72-1.3 NORMAL Septal motion 0.7 Systolic motion R. Ventricular cavity 1.5-2.0 NORMAL LVEF 60% 50% Paradoxical septal wall motion NORMAL 2-D : HYPOKINETIC SEPTUM--VALVES NORMAL, NO VENTRICULAR CLOT NOTED--NO EFFUSION, NO THROMBUS, LEFT VENTRICLE SIZE ENLARGED, LEFT ATRIAL SIZE AND RIGHT VENTRICLE SIZE NORMAL M-MODE: MV: NORMAL AV: NORMAL TV: NORMAL PV: CHAMBER SIZE: ENLARGED LEFT ATRIAL CAVITY WALL MOTION: HYPOKINETIC SEPTUM PERICARDIUM: NORMAL INTERPRETATION: 1. LEFT VENTRICLE HYPERTROPHY 2. HYPOKINETIC SEPTUM WITH EJECTION FRACTION 50% 3. NO APICAL VENTRICULAR CLOT NOTED 4. VALVES --NORMAL MTDD
== END 2023-07-23 14:30 | disposition home or self-care (01) ==
LOC: ED 10:42 → SCU 10:42
PROVIDERS: ADMIT Hospitalist; ATTEND Physician Assistant